=== PATIENT | female | born 1990 | race Caucasian/White ===

== ENCOUNTER 2024-02-09 03:52 | Emergency (ER) | payer OTHER ==
[~2024-02-09] VITALS: Ht 162.6 cm; Wt 59.4 kg
[2024-02-09 06:13] LABS: ANION GAP 15.9 mmol/L (8-16); CALCIUM 9.6 mg/dL (8.4-10.2); CREATININE, SERUM 0.89 mg/dL (0.57-1.11); POTASSIUM 3.9 mmol/L (3.5-5.1)
[2024-02-09 06:27] LABS: CLARITY,URINE CLOUDY (CLEAR); COLOR,URINE YELLOW (YELLOW)
[2024-02-09 06:28] LABS: BACTERIA,URINE MANY /HPF; BILIRUBIN,URINE SMALL (NEGATIVE); EPITHELIAL CELLS,URINE MANY /LPF; GLUCOSE, URINE NEGATIVE (NEGATIVE); KETONES,URINE 2+ (NEGATIVE); LEUKOCYTE ESTERASE ,URINE NEGATIVE (NEGATIVE); NITRITE,URINE NEGATIVE (NEGATIVE); PH,URINE 6 (5 - 7); PREGNANCY TEST, URINE NEGATIVE (NEGATIVE); PROTEIN,URINE DIPSTICK 1+ (NEGATIVE); URINE UROBILINOGEN 0.2 mg/dL (0.2 - 1); WBC,URINE (MAN) 21-50 /HPF (0-5)
[2024-02-09 07:27] LABS: BASOPHILS % 0.2 % (0.0-1.0); HEMATOCRIT 37.4 % (34.2-44.1); HEMOGLOBIN 11.6 g/dL (12.0-16.0); LYMPHOCYTES % 6.8 % (18.0-39.1); MEAN CORPUSCULAR HEMOGLOBIN 29.4 pg (28-32); MEAN CORPUSCULAR VOLUME 94.7 fL (81-99); MONOCYTES # (AUTO) 0.5 (0.2-0.8); MONOCYTES % 3.3 % (4.4-11.3); NEUTROPHILS # (AUTO) 13.7 (2.1-6.9); NEUTROPHILS % 89.3 % (38.7-80.0); PLATELET COUNT 375 x10e3/uL (140-360); RED BLOOD COUNT 3.95 x10e6/uL (3.6-5.1); RED CELL DISTRIBUTION WIDTH 12.3 % (11.7-14.4); WHITE BLOOD COUNT 15.32 x10e3/uL (4.8-10.8)
[2024-02-09] MEDS ORDERED: IOPAMIDOL 370 MG/ML 100 ML INFUS..BTL INJ ONE (08:04)
[2024-02-09] MEDS: ONDANSETRON HCL INJ 2MG/ML 2ML 2 MG/ML VIAL IV STA (09:22)
[2024-02-09] MEDS: FENTANYL CITRATE/PF 100MCG/2 ML INJ IV ONE (09:22)
[2024-02-09] MEDS: KETOROLAC TROMETHAMINE 30 MG/ML VIAL IV STA (09:22)
[2024-02-09 10:38] VITALS: PULSE 65; RESP 18; TEMP 97.1; O2SAT 98
[2024-02-09] MEDS ORDERED: CEFDINIR300 MG PO (11:45)
[2024-02-09] MEDS ORDERED: ULTRAM 50MG50 MG PO (11:45)
== END 2024-02-09 12:16 | disposition home or self-care (01) ==
LOC: ER 06:03
DX: R10.31 Right lower quadrant pain (principal); N83.201 Unspecified ovarian cyst, right side; R10.2 Pelvic and perineal pain
CPT/HCPCS: 36415; 74177; 76856; 80048; 81001; 81025; 85025; 99284; J1885; J2405; J3010; Q9967